=== PATIENT | female | born 1945 | race Hispanic/Latino ===

== ENCOUNTER → 2018-06-07 | Day surgery (SDC) | payer MEDICARE ==
[2018-06-05 12:10] LABS: BASOPHILS # (AUTO) 0.1 (0.0-0.1); BASOPHILS % 1.1 % (0.0-1.0); EOSINOPHILS # (AUTO) 0.2 (0.0-0.4); HEMATOCRIT 38.9 % (34.2-44.1); HEMOGLOBIN 12.3 g/dL (12.0-16.0); LYMPHOCYTES # (AUTO) 2.5 (1.0-3.2); LYMPHOCYTES % 33.8 % (18.0-39.1); MEAN CORPUSCULAR HEMOGLOBIN 26.5 pg (28-32); MEAN CORPUSCULAR HGB CONC 31.6 g/dL (31-35); MEAN CORPUSCULAR VOLUME 83.7 fL (81-99); MONOCYTES # (AUTO) 0.6 (0.2-0.8); NEUTROPHILS % 53.8 % (38.7-80.0); PLATELET COUNT 318 x10e3/uL (140-360); RED BLOOD COUNT 4.65 x10e6/uL (3.6-5.1); RED CELL DISTRIBUTION WIDTH 15.8 % (11.7-14.4)
[~2018-06-07] MED LIST: BENICAR HCT 201 EACH PO; DEXILANT60 MG PO; ELIQUIS PO; GUAIFENESIN-CO118 ML PO; METHOCARBAMOL500 MG PO; METOPROLOL SUCC25 MG PO; METRONIDAZOLE250 MG PO; NAPROXEN500 MG PO; NIFEDIPINE ER30 M1 PO; PROPOFOL IV EMULSION 10 MG/ML 50 ML VIAL ONE
--- OUTSIDE RECORDS SUMMARY | 2018-06-07 07:15 | XMS REPORT | Clinical Summary ---
Author Author [facility] Organization [facility] Address Unknown Phone Unavailable Care Team Providers Care Collections Attorney Name Role Phone PCP Unavailable Allergies Not on File Medications Not on file Active Problems Not on file Social History Date Tobacco Use Types Packs/Day Years Used Never Assessed Sex Assigned at Date Recorded Not on file Industry Job Start Date Occupation Not on file Not on file Not on file Travel End Travel History Travel Start No recent travel history available. Last Filed Vital Signs Not on file Plan of Treatment Not on file Results Not on fileafter 06/06/2017 Insurance Payer Benefit Subscriber ID Type Phone Address Plan / Group MEDICARE MEDICARE A xxxxxxxxxx Medicare B (Home) [place] [address]
--- OUTSIDE RECORDS SUMMARY | 2018-06-07 07:15 | XMS REPORT | Clinical Summary ---
Author Author [facility] Address Unknown Phone Unavailable Care Team Providers [facility] Re[employer] Manager Name Role Phone Malcolm Sevilla MD PCP Allergies Comments Active Allergy Reactions Severity Noted Date Metoclopramide Rash Low 01/08/2017 Penicillins 01/08/2017 Medications End Date Status Medication Sig Dispensed Refills Start Date Active dexlansoprazole Take 60 mg by 0 (DEXILANT) 60 mg capsule mouth daily. Active apixaban (ELIQUIS) 5 mg Take 5 mg by 0 tablet mouth 2 (two) times a day. Active aspirin 81 mg chewable Chew 81 mg 0 tablet daily. Active metoprolol succinate XL Take 50 mg by 0 (TOPROL-XL) 50 mg 24 hr mouth daily. tablet Active olmesartan-hydrochlorothi Take 1 tablet 0 azide (BENICAR HCT) by mouth 20-12.5 mg per tablet daily. Active hydrALAZINE (APRESOLINE) Take 50 mg by 0 50 MG tablet mouth 2 (two) times a day. 06/18/2017 Discontinued metoclopramide (REGLAN) 5 Take 1 tablet 2 MG tablet by mouth 2 7 (two) times a day. 06/18/2017 Discontinued metoprolol succinate XL Take 1 tablet 0 (TOPROL-XL) 50 mg 24 hr by mouth 7 tablet daily. 06/25/2017 Discontinued apixaban (ELIQUIS) 5 mg Take Apixaban 120 tablet 0 tablet 10mg PO BID 7 x7 days, then Take Apixaban 5mg PO BID 06/20/2017 Discontinued hydrALAZINE (APRESOLINE) Take 50 mg by 0 50 MG tablet mouth daily. 06/25/2017 Discontinued clonIDINE (CATAPRES) 0.1 Take 0.1 mg 0 MG tablet by mouth every 4 (four) hours as needed for high blood pressure. 06/25/2017 Discontinued metoprolol succinate XL Take 1 tablet 30 tablet 0 (TOPROL-XL) 50 mg 24 hr (50 mg total) 8 tablet by mouth daily for 30 days. 06/25/2017 Discontinued aspirin 81 mg chewable Chew 1 tablet 30 tablet 0 tablet (81 mg total) 8 daily for 30 days. 06/25/2017 Discontinued ciprofloxacin (CIPRO) 500 Take 1 tablet 10 tablet 0 MG tablet (500 mg 8 total) by mouth 2 (two) times a day for 5 days. 06/25/2017 Discontinued codeine-guaifenesin Take 5 mL by 118 mL 0 (GUAIFENESIN AC) 10-100 mouth 3 8 mg/5 mL liquid (three) times a day as needed for cough for up to 5 days. 07/16/2017 meclizine (ANTIVERT) 12.5 Take 1 tablet 25 tablet 0 mg tabletIndications: (12.5 mg 8 Vertigo total) by mouth 2 (two) times a day as needed for dizziness or nausea for up to 20 days. Status Hospital, Clinic, or Ordered Dose Route Frequency Start End Date Other Facility Date Administered Medication Ended ondansetron ODT 4 mg oral every 8 hours PRN 06/26/19 (ZOFRAN-ODT) 18 8 disintegrating tablet 4 mgIndications: Vertigo, Nausea and vomiting, intractability of vomiting not specified, unspecified vomiting type Active Problems Problem Noted Date Vertigo 06/25/2017 Acute angina 06/17/2017 Hypertension 03/20/2017 Bilateral pulmonary embolism 02/01/2017 Encounters Care Team Description Date Type Specialty Cait Lee RN 06/30/2017 Telephone Tracer Clerk Cait Lee RN 06/27/2017 Telephone Tracer Clerk Amos Schmid MD Cheung, Min-Yuen Cynthia, MD Vertigo (Primary Dx); Intractable vomiting with nausea, unspecified vomiting type; Unable to ambulate; Other chronic pulmonary embolism without acute cor pulmonale; Gastroesophageal reflux disease, esophagitis presence not specified; Acute angina; Hypertension, unspecified type; Nausea and vomiting, intractability of vomiting not specified, unspecified vomiting type; Bilateral pulmonary embolism 06/25/2017 Emergency General Internal Medicine - 06/26/2017 Carlos Asencio 06/19/2017 Orders Only Procedural Cardiology Kelby Madsen DO Cherian, Cecil, MD Acute angina (Primary Dx); SOB (shortness of breath); Weakness generalized; Bilateral pulmonary embolism 06/17/2017 Emergency General Internal Medicine - 06/20/2017 after 06/06/2017 Immunizations Name Dates Previously Given Next Due FLUCELVAX QUAD PF (0.5mL 02/02/2017 syringe) Social History Date Tobacco Use Types Packs/Day Years Used Never Smoker Smokeless Tobacco: Never Used Alcohol Use Drinks/Week oz/Week Comments No Sex Assigned at Date Recorded Not on file Industry Job Start Date Occupation Not on file Not on file Not on file Travel End Travel History Travel Start No recent travel history available. Last Filed Vital Signs Time Taken Vital Sign Reading 06/26/2017 12:16 PM IT BUSINESS PROCESS ARCHITECT Blood Pressure 120/60 06/26/2017 12:16 PM IT BUSINESS PROCESS ARCHITECT Pulse 68 06/26/2017 12:16 PM IT BUSINESS PROCESS ARCHITECT Temperature 36.7 C (98 F) 06/26/2017 12:16 PM IT BUSINESS PROCESS ARCHITECT Respiratory Rate 18 06/26/2017 12:16 PM IT BUSINESS PROCESS ARCHITECT Oxygen Saturation 96% - Inhaled Oxygen - Concentration 06/25/2017 7:26 PM IT BUSINESS PROCESS ARCHITECT Weight 58.7 kg (129 lb 4.8 oz) 06/25/2017 7:26 PM IT BUSINESS PROCESS ARCHITECT Height 165.1 cm (5' 5") 06/25/2017 7:26 PM IT BUSINESS PROCESS ARCHITECT Body Mass Index 21.52 Plan of Treatment Health Maintenance Due Date Last Done Comments BREAST CANCER SCREENING 1994 COLON CANCER SCREENING 1994 SHINGLES VACCINES ( of 1994 2) PNEUMOCOCCAL 2009 POLYSACCHARIDE VACCINE AGE 65 AND OVER PNEUMOCOCCAL-13 2009 INFLUENZA VACCINE 11/29/2017 02/02/2017 Procedures Comments Procedure Name Priority Date/Time Associated Diagnosis ZZESTIMATED GFR Routine 06/26/2017 5:23 AM IT BUSINESS PROCESS ARCHITECT BASIC METABOLIC PANEL Routine 06/26/2017 5:23 AM IT BUSINESS PROCESS ARCHITECT HC COMPLETE BLD COUNT Routine 06/26/2017 W/AUTO DIFF 5:23 AM IT [employer] PROC[employer]CH[employer]ECT CT ANGIOGRAM NECK W WO STAT 06/25/2017 CONTRAST 6:05 PM IT BUSINESS PROCESS ARCHITECT URINALYSIS SCREEN AND STAT 06/25/2017 MICROSCOPY, WITH REFLEX 2:37 PM IT BUSINESS PROCESS ARCHITECT TO CULTURE URINE CULTURE STAT 06/25/2017 2:34 PM IT [employer] PROCESS ARCHITECT CT HEAD WO CONTRAST STAT 06/25/2017 1:34 PM IT BUSINESS PROCESS ARCHITECT POC GLUCOSE Routine 06/25/2017 12:30 PM IT BUSINESS PROCESS ARCHITECT ZZESTIMATED GFR STAT 06/25/2017 12:20 PM IT BUSINESS PROCESS ARCHITECT TROPONIN STAT 06/25/2017 12:20 PM IT BUSINESS PROCESS ARCHITECT PROTHROMBIN TIME WITH INR STAT 06/25/2017 12:20 PM IT BUSINESS PROCESS ARCHITECT PARTIAL THROMBOPLASTIN STAT 06/25/2017 TIME (PTT) 12:20 PM IT BUSINESS PROCESS ARCHITECT CREATINE KINASE, TOTAL STAT 06/25/2017 (CPK) 12:20 PM IT BUSINESS PROCESS ARCHITECT COMPREHENSIVE METABOLIC STAT 06/25/2017 PANEL 12:20 PM IT BUSINESS PROCESS ARCHITECT CK-MB STAT 06/25/2017 12:20 PM IT BUSINESS PROCESS ARCHITECT HC COMPLETE BLD COUNT STAT 06/25/2017 W/AUTO DIFF 12:20 PM IT BUSINESS PROCESS ARCHITECT ECG 12-LEAD Routine 06/25/2017 12:08 PM IT BUSINESS PROCESS ARCHITECT ZZESTIMATED GFR Routine 06/20/2017 4:32 AM IT BUSINESS PROCESS ARCHITECT COMPREHENSIVE METABOLIC Routine 06/20/2017 PANEL 4:32 AM IT BUSINESS PROCESS ARCHITECT HC COMPLETE BLD COUNT Routine 06/20/2017 W/AUTO DIFF 4:32 AM IT BUSINESS PROCESS ARCHITECT CTA CORONARY ARTERIES W Routine 06/19/2017 CONTRAST 2:09 PM IT BUSINESS PROCESS ARCHITECT ECHOCARDIOGRAM 2D Routine 06/19/2017 COMPLETE W MMODE SPECTRAL 8:49 AM IT BUSINESS PROCESS ARCHITECT COLOR DOPPLER (85901) HC COMPLETE BLD COUNT Routine 06/19/2017 W/AUTO DIFF 6:15 AM IT BUSINESS PROCESS ARCHITECT ZZESTIMATED GFR Routine 06/19/2017 4:00 AM IT BUSINESS PROCESS ARCHITECT COMPREHENSIVE METABOLIC Routine 06/19/2017 PANEL 4:00 AM IT BUSINESS PROCESS ARCHITECT NM LUNG VENTILATION Routine 06/18/2017 PERFUSION 8:30 PM IT BUSINESS PROCESS ARCHITECT TROPONIN Timed 06/18/2017 1:59 AM IT BUSINESS PROCESS ARCHITECT CT ANGIOGRAM PE CHEST STAT 06/17/2017 10:20 PM IT BUSINESS PROCESS ARCHITECT ECG ED PRELIMINARY Routine 06/17/2017 INTERPRETATION 9:04 PM IT BUSINESS PROCESS ARCHITECT URINALYSIS SCREEN AND Routine 06/17/2017 MICROSCOPY, WITH REFLEX 8:14 PM IT BUSINESS PROCESS ARCHITECT TO CULTURE BLOOD CULTURE, AEROBIC & Routine 06/17/2017 ANAEROBIC 8:14 PM IT BUSINESS PROCESS ARCHITECT BLOOD CULTURE, AEROBIC & Routine 06/17/2017 ANAEROBIC 8:14 PM IT BUSINESS PROCESS ARCHITECT URINE CULTURE Routine 06/17/2017 8:14 PM IT BUSINESS PROCESS ARCHITECT GRAM STAIN Routine 06/17/2017 8:14 PM IT BUSINESS PROCESS ARCHITECT ZZESTIMATED GFR STAT 06/17/2017 7:47 PM IT BUSINESS PROCESS ARCHITECT CREATINE KINASE, TOTAL STAT 06/17/2017 (CPK) 7:47 PM IT BUSINESS PROCESS ARCHITECT PARTIAL THROMBOPLASTIN STAT 06/17/2017 TIME (PTT) 7:47 PM IT BUSINESS PROCESS ARCHITECT PROTHROMBIN TIME WITH INR STAT 06/17/2017 7:47 PM IT BUSINESS PROCESS ARCHITECT B NATRIURETIC PEPTIDE STAT 06/17/2017 7:47 PM IT BUSINESS PROCESS ARCHITECT TROPONIN STAT 06/17/2017 7:47 PM IT BUSINESS PROCESS ARCHITECT COMPREHENSIVE METABOLIC STAT 06/17/2017 PANEL 7:47 PM IT BUSINESS PROCESS ARCHITECT HC COMPLETE BLD COUNT STAT 06/17/2017 W/AUTO DIFF 7:47 PM IT BUSINESS PROCESS ARCHITECT RESPIRATORY PATHOGEN Routine 06/17/2017 PANEL 7:47 PM IT BUSINESS PROCESS ARCHITECT INFLUENZA ANTIGEN Routine 06/17/2017 7:47 PM IT BUSINESS PROCESS ARCHITECT XR CHEST 1 VW PORTABLE STAT 06/17/2017 7:32 PM IT BUSINESS PROCESS ARCHITECT ECG 12-LEAD STAT 06/17/2017 7:17 PM IT BUSINESS PROCESS ARCHITECT after 06/06/2017 Results * Estimated GFR (06/26/2017 5:23 AM IT BUSINESS PROCESS ARCHITECT) Only the most recent of 5 results within the time period is included. GFR Non Af Amer 49 (A) mL/min/1.73 m2 [facility] DEPARTMENT OF PATHOLOGY AND GENOMIC MEDICINE GFR Af Amer 59 (A) mL/min/1.73 m2 [facility] DEPARTMENT OF Comment: PATHOLOGY AND Chronic kidney disease: <60 GENOMIC MEDICINE mL/min/1.73m2 Kidney failure: <15 mL/min/1.73m2 The estimated GFR is calculated from the IDMS-traceable Modification of Diet in Renal Disease Equation. The accuracy of the calculation is poor when the creatinine is normal. Calculated values >90 mL/min/1.73m2 are not reported. This equation has not been validated in children (<18 years), women, the elderly (>70 years), or ethnic groups other than Caucasians and Americans. Specimen Plasma specimen Performing Organization Address City/State/Zipcode Phone Number [facility] DEPARTMENT OF [address] [place] [address] PATHOLOGY AND GENOMIC MEDICINE * CBC with platelet and differential (06/26/2017 5:23 AM IT BUSINESS PROCESS ARCHITECT) Only the most recent of 5 results within the time period is included. WBC 6.60 4.50 - 11.00 k/uL [facility] DEPARTMENT OF PATHOLOGY AND GENOMIC MEDICINE RBC 3.98 (L) 4.20 - 5.50 m/uL [facility] DEPARTMENT OF PATHOLOGY AND GENOMIC MEDICINE HGB 10.7 (L) 12.0 - 16.0 g/dL [facility] DEPARTMENT OF PATHOLOGY AND GENOMIC MEDICINE HCT 33.4 (L) 37.0 - 47.0 % [facility] DEPARTMENT OF PATHOLOGY AND GENOMIC MEDICINE MCV 83.9 82.0 - 100.0 fL [facility] DEPARTMENT OF PATHOLOGY AND GENOMIC MEDICINE MCH 26.9 (L) 27.0 - 34.0 pg [facility] DEPARTMENT OF PATHOLOGY AND GENOMIC MEDICINE MCHC 32.0 31.0 - 37.0 g/dL [facility] DEPARTMENT OF PATHOLOGY AND GENOMIC MEDICINE RDW - SD 44.7 37.0 - 55.0 fL [facility] DEPARTMENT OF PATHOLOGY AND GENOMIC MEDICINE MPV 10.2 8.8 - 13.2 fL [facility] DEPARTMENT OF PATHOLOGY AND GENOMIC MEDICINE Platelet count 261 150 - 400 k/uL [facility] DEPARTMENT OF PATHOLOGY AND GENOMIC MEDICINE Nucleated RBC 0.00 /100 WBC [facility] DEPARTMENT OF PATHOLOGY AND GENOMIC MEDICINE Neutrophils 56.4 39.0 - 69.0 % [facility] DEPARTMENT OF PATHOLOGY AND GENOMIC MEDICINE Lymphocytes 29.7 25.0 - 45.0 % [facility] DEPARTMENT OF PATHOLOGY AND GENOMIC MEDICINE Monocytes 8.6 0.0 - 10.0 % [facility] DEPARTMENT OF PATHOLOGY AND GENOMIC MEDICINE Eosinophils 3.6 0.0 - 5.0 % [facility] DEPARTMENT OF PATHOLOGY AND GENOMIC MEDICINE Basophils 1.2 (H) 0.0 - 1.0 % [facility] DEPARTMENT OF PATHOLOGY AND GENOMIC MEDICINE Immature granulocytes 0.5Comment: "Immature 0.0 - 1.0 % [facility] DEPARTMENT OF granulocytes" (promyelocytes, PATHOLOGY AND myelocytes, metamyelocytes) [facility] Specimen Blood Performing Organization Address City/State/Zipcode Phone Number [facility] DEPARTMENT OF [address] [place] [address] PATHOLOGY AND GENOMIC MEDICINE * Basic metabolic panel (06/26/2017 5:23 AM IT BUSINESS PROCESS ARCHITECT) Sodium 137 135 - 148 mEq/L [facility] DEPARTMENT OF PATHOLOGY AND GENOMIC MEDICINE Potassium 3.7 3.5 - 5.0 mEq/L [facility] DEPARTMENT OF PATHOLOGY AND GENOMIC MEDICINE Chloride 102 98 - 112 mEq/L [facility] DEPARTMENT OF PATHOLOGY AND GENOMIC MEDICINE CO2 24 24 - 31 mEq/L [facility] DEPARTMENT OF PATHOLOGY AND GENOMIC MEDICINE Anion gap 11 7 - 15 mEq/L [facility] DEPARTMENT OF Comment: PATHOLOGY AND Starting from July GENOMIC MEDICINE , anion gap calculation no longer incorporates potassium. Please note the change. BUN 17 8 - 23 mg/dL [facility] DEPARTMENT OF PATHOLOGY AND GENOMIC MEDICINE Creatinine 1.1 (H) 0.5 - 0.9 mg/dL [facility] DEPARTMENT OF PATHOLOGY AND GENOMIC MEDICINE Glucose 108 (H) 65 - 99 mg/dL [facility] DEPARTMENT OF PATHOLOGY AND GENOMIC MEDICINE Calcium 8.8 8.8 - 10.2 mg/dL [facility] DEPARTMENT OF PATHOLOGY AND GENOMIC MEDICINE Specimen Plasma specimen Performing Organization Address City/State/Zipcode Phone Number [facility] DEPARTMENT OF [address] [place] [address] PATHOLOGY AND GENOMIC MEDICINE * CTA Neck W Wo Contrast (06/25/2017 6:05 PM IT BUSINESS PROCESS ARCHITECT) Narrative Performed At EXAMINATION: CT ANGIOGRAM NECK W WO CONTRAST RADIANT CLINICAL HISTORY: neck pain and new onset vertigo COMPARISON:None TECHNIQUE: Imaging of the cervical circulation was obtained from the upper thorax to the skull base during the arterial phase of enhancement. Postprocessing was performed with MIP multiplanar and 3D reconstructed images. CT scans are performed using radiation dose reduction techniques. Technical factors are evaluated and adjusted to ensure appropriate moderation of exposure. Automated dose management technology is applied to adjust radiation exposure while achieving a diagnostic quality image. FINDINGS: The common carotid arteries, carotid bulbs, internal carotid arteries and external carotid arteries are opacified with 0% stenosis by NASCET criteria. The vertebral arteries are patent throughout the visualized cervical segments without significant stenosis. The vertebral arteries are roughly codominant. Visualized upper mediastinum shows no mass lesion. Lung apices are clear. Visualized soft tissues shows no mass, adenopathy or fluid collection. Visualized osseous structures shows no acute fracture or dislocation. No incidental thyroid nodules are noted. IMPRESSION: No hemodynamically significant narrowing of the cervical vessels by NASCET criteria. [facility]-[id number] Procedure Note Interface, Radiology Results Incoming - 06/25/2017 6:15 PM IT BUSINESS PROCESS ARCHITECT EXAMINATION: CT ANGIOGRAM NECK W WO CONTRAST CLINICAL HISTORY: neck pain and new onset vertigo COMPARISON: None TECHNIQUE: Imaging of the cervical circulation was obtained from the upper thorax to the skull base during the arterial phase of enhancement. Postprocessing was performed with MIP multiplanar and 3D reconstructed images. CT scans are performed using radiation dose reduction techniques. Technical factors are evaluated and adjusted to ensure appropriate moderation of exposure. Automated dose management technology is applied to adjust radiation exposure while achieving a diagnostic quality image. FINDINGS: The common carotid arteries, carotid bulbs, internal carotid arteries and external carotid arteries are opacified with 0% stenosis by NASCET criteria. The vertebral arteries are patent throughout the visualized cervical segments without significant stenosis. The vertebral arteries are roughly codominant. Visualized upper mediastinum shows no mass lesion. Lung apices are clear. Visualized soft tissues shows no mass, adenopathy or fluid collection. Visualized osseous structures shows no acute fracture or dislocation. No incidental thyroid nodules are noted. IMPRESSION: No hemodynamically significant narrowing of the cervical vessels by NASCET criteria. [facility]-[id number] Performing Organization Address [facility]/Zipcode Phone Number [facility] [address] [place] [address] * Urinalysis screen and microscopy, with reflex to culture (06/25/2017 2:37 PM IT BUSINESS PROCESS ARCHITECT) Only the most recent of 2 results within the time period is included. Specimen site Clean catch [facility] DEPARTMENT OF PATHOLOGY AND GENOMIC MEDICINE Color, UA Yellow [facility] DEPARTMENT OF PATHOLOGY AND GENOMIC MEDICINE Appearance, UA Clear [facility] DEPARTMENT OF PATHOLOGY AND GENOMIC MEDICINE Specific gravity, UA 1.019 1.001 - 1.035 [facility] DEPARTMENT OF PATHOLOGY AND GENOMIC MEDICINE pH, UA 5.0 5.0 - 8.5 [facility] DEPARTMENT OF PATHOLOGY AND GENOMIC MEDICINE Protein, UA 1+ (A) Negative [facility] DEPARTMENT OF PATHOLOGY AND GENOMIC MEDICINE Glucose, UA Negative Negative [facility] DEPARTMENT OF PATHOLOGY AND GENOMIC MEDICINE Ketones, UA Negative Negative [facility] DEPARTMENT OF PATHOLOGY AND GENOMIC MEDICINE Bilirubin, UA Negative Negative [facility] DEPARTMENT OF PATHOLOGY AND GENOMIC MEDICINE Blood, UA Small (A) Negative [facility] DEPARTMENT OF PATHOLOGY AND GENOMIC MEDICINE Nitrite, UA Negative Negative [facility] DEPARTMENT OF PATHOLOGY AND GENOMIC MEDICINE Urobilinogen, UA <2.0 <2.0 [facility] DEPARTMENT OF PATHOLOGY AND GENOMIC MEDICINE Leukocyte esterase, UA Negative Negative [facility] DEPARTMENT OF PATHOLOGY AND GENOMIC MEDICINE Epithelial cells, UA 1 /HPF [facility] DEPARTMENT OF PATHOLOGY AND GENOMIC MEDICINE WBC, UA 2 0 - 4 /HPF [facility] DEPARTMENT OF PATHOLOGY AND GENOMIC MEDICINE RBC, UA 2 0 - 2 /HPF [facility] DEPARTMENT OF PATHOLOGY AND GENOMIC MEDICINE Bacteria, UA None seen None seen [facility] DEPARTMENT OF PATHOLOGY AND GENOMIC MEDICINE Yeast, UA None seen [facility] DEPARTMENT OF PATHOLOGY AND GENOMIC MEDICINE Yeast with pseudohyphae, None seen [facility] DEPARTMENT OF UA PATHOLOGY AND GENOMIC MEDICINE Hyaline casts, UA 10 /LPF [facility] DEPARTMENT OF PATHOLOGY AND GENOMIC MEDICINE Specimen Urine Performing Organization Address City/[facility] Centercode Phone Number [address] [address] PATHOLOGY AND GENOMIC MEDICINE * Urine culture (06/25/2017 2:34 PM IT BUSINESS PROCESS ARCHITECT) Only the most recent of 2 results within the time period is included. Urine culture SEE COMMENTComment: [facility] DEPARTMENT OF Bacteriuria screen negative. PATHOLOGY AND GENOMIC MEDICINE Performing Organization Address [facility] Centercode Phone Number [address] [address] PATHOLOGY AND GENOMIC MEDICINE * CT Head Wo Contrast (06/25/2017 1:34 PM IT BUSINESS PROCESS ARCHITECT) Narrative Performed At EXAMINATION:CT HEAD WO CONTRAST HM RADIANT CLINICAL HISTORY:new onset sudden dizziness COMPARISON:March 20, 2017 TECHNIQUE: CT imaging was performed with iterative reconstruction technique and/or automated exposure control to reduce radiation dose. Findings: No intracranial hemorrhage, acute transcortical ischemia, extra-axial fluid collections or parenchymal mass lesions. No skull fractures or aggressive bony lesions. Bilateral lens surgery. Visualized paranasal sinuses show minimal thickening. Mastoid air cells are clear. IMPRESSION: No acute intracranial abnormalities. [facility]-[id number] Procedure Note Hm Interface, Radiology Results Incoming - 06/25/2017 1:40 PM IT BUSINESS PROCESS ARCHITECT EXAMINATION: CT HEAD WO CONTRAST CLINICAL HISTORY: new onset sudden dizziness COMPARISON: March 20, 2017 TECHNIQUE: CT imaging was performed with iterative reconstruction technique and/or automated exposure control to reduce radiation dose. Findings: No intracranial hemorrhage, acute transcortical ischemia, extra-axial fluid collections or parenchymal mass lesions. No skull fractures or aggressive bony lesions. Bilateral lens surgery. Visualized paranasal sinuses show minimal thickening. Mastoid air cells are clear. IMPRESSION: No acute intracranial abnormalities. [facility]-[id number] Performing Organization Address [facility] Phone Number [facility] [address] [place] [id number] * POC glucose (06/25/2017 12:30 PM IT BUSINESS PROCESS ARCHITECT) POC glucose 136 (H) 65 - 99 mg/dL [facility] DEPARTMENT OF Comment: PATHOLOGY AND [facility] Notified RN GENOMIC MEDICINE Meter ID: [id number] Dba: Margarito Garcia Performing Organization Address [facility] Centercode Phone Number [facility] DEPARTMENT [address] [address] PATHOLOGY AND GENOMIC MEDICINE * CK-MB (06/25/2017 12:20 PM IT BUSINESS PROCESS ARCHITECT) CK-MB 2.6 1.0 - 5.3 ng/mL [facility] DEPARTMENT OF PATHOLOGY AND GENOMIC MEDICINE Specimen Plasma specimen Performing Organization Address [facility] [place] [address] PATHOLOGY AND [facility] MEDICINE * Troponin (06/25/2017 12:20 PM IT BUSINESS PROCESS ARCHITECT) Only the most recent of 3 results within the time period is included. Troponin <0.30 0.00 - 0.30 ng/mL [facility] DEPARTMENT OF Comment: PATHOLOGY AND 0.30 - 1.49 GENOMIC MEDICINE ng/mlMay indicate increased risk of acute coronary syndrome. >=1.5 ng/ml Consistent with acute myocardial infarction. The diagnostic value of a single normal or non-diagnostic result is questionable.Serial samples at 2-6 hour intervals are required to rule out acute myocardial injury. Specimen Plasma specimen Performing Organization Address [facility] [place] [address] [facility] * Partial thromboplastin time, activated (06/25/2017 12:20 PM IT BUSINESS PROCESS ARCHITECT) Only the most recent of 2 results within the time period is included. PTT 33.6 23.0 - 36.0 sec [facility] DEPARTMENT OF Comment: PATHOLOGY AND PTT therapeutic range for [facility] MEDICINE unfractionated heparin is 61.0-112.0 seconds which corresponds to Anti-Xa 0.3-0.7 U/ml. Specimen Blood Performing Organization Address [facility] [place] [address] PATHOLOGY AND [facility] MEDICINE * Prothrombin time with INR (06/25/2017 12:20 PM IT BUSINESS PROCESS ARCHITECT) Only the most recent of 2 results within the time period is included. Prothrombin time 16.1 (H) 12.0 - 15.0 sec [facility] DEPARTMENT OF PATHOLOGY AND [facility] INR 1.3 [facility] DEPARTMENT OF Comment: PATHOLOGY AND The International Normalized GENOMIC MEDICINE Ratio (INR) is a therapeutic monitoring tool for patients who are stable on oral anticoagulant therapy. An INR of 2.0-3.0 is suggested for deep vein thrombosis/pulmonary embolism. Specimen Blood Performing Organization Address [facility]/[place] [address] PATHOLOGY AND [facility] MEDICINE * Creatine kinase, total (CPK) (06/25/2017 12:20 PM IT BUSINESS PROCESS ARCHITECT) Only the most recent of 2 results within the time period is included. Creatine kinase 71 26 - 192 U/L [facility] DEPARTMENT OF PATHOLOGY AND GENOMIC MEDICINE Specimen Plasma specimen Performing Organization Address City/State/Zipcode Phone Number [facility] DEPARTMENT OF [address] [place] [address] PATHOLOGY AND GENOMIC MEDICINE * Comprehensive metabolic panel (06/25/2017 12:20 PM IT BUSINESS PROCESS ARCHITECT) Only the most recent of 4 results within the time period is included. Sodium 137 135 - 148 mEq/L [facility] DEPARTMENT OF PATHOLOGY AND GENOMIC MEDICINE Potassium 4.0 3.5 - 5.0 mEq/L [facility] DEPARTMENT OF PATHOLOGY AND GENOMIC MEDICINE Chloride 101 98 - 112 mEq/L [facility] DEPARTMENT OF PATHOLOGY AND GENOMIC MEDICINE CO2 23 (L) 24 - 31 mEq/L [facility] DEPARTMENT OF PATHOLOGY AND GENOMIC MEDICINE Anion gap 13 7 - 15 mEq/L [facility] DEPARTMENT OF Comment: PATHOLOGY AND Starting from July GENOMIC MEDICINE , anion gap calculation no longer incorporates potassium. Please note the change. BUN 18 8 - 23 mg/dL [facility] DEPARTMENT OF PATHOLOGY AND GENOMIC MEDICINE Creatinine 1.0 (H) 0.5 - 0.9 mg/dL [facility] DEPARTMENT OF PATHOLOGY AND GENOMIC MEDICINE Glucose 138 (H) 65 - 99 mg/dL [facility] DEPARTMENT OF PATHOLOGY AND GENOMIC MEDICINE Calcium 9.3 8.8 - 10.2 mg/dL [facility] DEPARTMENT OF PATHOLOGY AND GENOMIC MEDICINE Protein 7.3 6.3 - 8.3 g/dL [facility] DEPARTMENT OF Comment: PATHOLOGY AND [place] GENOMIC MEDICINE 4.6-7.0 g/dL 1 week 4.4-7.6 g/dL 7 months-1year 5.1-7.3 g/dL 1-2 years5.6-7 .5 g/dL >3 years6.0-8 .0 g/dL 18-150 6.3-8.3 g/dL Albumin 3.6 3.5 - 5.0 g/dL [facility] DEPARTMENT OF PATHOLOGY AND GENOMIC MEDICINE A/G ratio 1.0 0.7 - 3.8 [facility] DEPARTMENT OF PATHOLOGY AND GENOMIC MEDICINE Alkaline phosphatase 111 (H) 35 - 104 U/L [facility] DEPARTMENT OF PATHOLOGY AND GENOMIC MEDICINE AST 23 10 - 35 U/L [facility] DEPARTMENT OF PATHOLOGY AND GENOMIC MEDICINE ALT 15 5 - 50 U/L [facility] DEPARTMENT OF PATHOLOGY AND GENOMIC MEDICINE Total bilirubin 0.3 0.0 - 1.2 mg/dL [facility] DEPARTMENT OF PATHOLOGY AND GENOMIC MEDICINE Specimen Plasma specimen Performing Organization Address [facility] Phone Number [facility] DEPARTMENT OF [address] [place] [address] PATHOLOGY AND GENOMIC MEDICINE * ECG 12 lead (06/25/2017 12:08 PM IT BUSINESS PROCESS ARCHITECT) Only the most recent of 2 results within the time period is included. Ventricular rate 89 H MUSE Atrial rate 89 [facility] MUSE IL interval 222 [facility] MUSE QRSD interval 110 [facility] MUSE QT interval 374 [facility] MUSE QTC interval 455 [facility] MUSE P axis 1 64 HM MUSE QRS axis 1 47 [facility] MUSE T wave axis 35 [facility] MUSE EKG impression Sinus rhythm with 1st degree [facility] MUSE AV block-Low voltage QRS-Incomplete left bundle branch block-Borderline ECG-In automated comparison with ECG of -JUN-2017 19:17,-Incomplete left bundle branch block is now present- Performing Organization Address [facility] Phone Number [facility] [address] [place] [address] * Cv cta coronary arteries bypass w contrast (06/19/2017 2:09 PM IT BUSINESS PROCESS ARCHITECT) Narrative Performed At [facility] Nuclear Cardiology and Cardiac CT [address] [place] [address] CTA Coronary Arteries Report Pat.Name:EDILBERTO PA Pat.ID:[id number] .Date: 06/19/2017 Refer.MD:GHANSHYAM HILL MD Exam Time: 1:55:00 PMStudy Type:CTA Coronary Arteries Height:62inWeight:135lb BSA: 1.62 m2 DOBAge:1945,71Y Sex: FEMALEBP:144/69 HR:73 bpm Nuclear Tech:Migdalia Tejeda, RT(R)(CT) CPT - 4: CCTA w Thoracic Aorta (NonCongenital) [id number] Nuclear Event ID:[id number] Order ID:[id number] Reason for Study:Chest Pain Procedures:CT Prospective (intervals) Race:C SUMMARY: Technique: IV contrast was administered and sequential 0.[address] cuts were obtained through the chest using the Siemens Somatom Force CT scanner. Post-processing and 3D reconstruction were done using the Intersect ENT workstation. Interactive image viewing and volumetric display and analysis were also performed. CTA RESULTS Left Main: A normal sized 4.4 artery which arises normally from the left sinus of Valsalva and divides into the left anterior descending and circumflex coronary arteries. No significant atherosclerotic plaque is present. Left anterior descending (LAD): A normal sized 3.4mm artery which wraps around the apex and gives off two diagonal branches. Mild non-calcified atherosclerotic plaque is present in the proximal segment but without significant stenosis. The first diagonal is a 1.0 mm bifurcating artery which has no significant atherosclerotic plaque present. The second diagonal is a 2.2 mm bifurcating artery which has no significant atherosclerotic plaque present. Left circumflex: A normal sized 2.9 mm non-dominant artery which arises normally from the left main and gives off three major obtuse marginal arteries before terminating in the AV groove. No significant atherosclerotic plaqueis present. The first obtuse marginal is a 1.1 mm artery which has no significant atherosclerotic plaque present. The second obtuse marginal is a 1.8 mm artery which has no significant atherosclerotic plaque present. The third obtuse marginal is a 2.2 mm artery which has no significant atherosclerotic plaque present. Right coronary artery: A normal sized 3.5 mm dominant artery which arises normally from the right sinus of Valsalva and gives off several right ventricular branches, the posterior descending artery and the posterolateral artery. No significant atherosclerotic plaqueis present. The posterior descending is a 2.3 mm artery which has no significant atherosclerotic plaque present The posterolateral is a 2.4 mm trifurcating artery which has mild predominantly calcified atherosclerotic plaque present but no significant stenosis. Ramus: None Stents: None. Bypass Grafts: None. Pulmonary Arteries: Normal pulmonary artery sizes with no proximal thrombus identified. Left Atrial and Pulmonary Vein Dimensions: Left atrial size (A-P diameter) 2.9 cm. Left atrial volume 69 ml. Normal PV anatomy Left superior PV12 mm. Left inferior PV13 mm. Right superior PV16 mm. Right inferior PV 15 mm. There is no evidence of the left atrial appendage clot., There is a patent foramen ovale. Left Ventricular Valve Morphology/Function: Aortic valve is tri-leaflet and there is no evidence of stenosis or regurgitation. Mitral valve is normal without evidence of regurgitation. Thoracic Aortic Dimensions: No aortic aneurysm or dissection is seen. Aortic root2.8 cm. Sinotubular junction 2.0 cm. Mid ascending aorta 2.5 cm. Descending thoracic aorta 2.1 cm. Pericardium: No pericardial effusion or pericardial thickening. Non-Cardiac Findings: Bibasilar atelectasis. Small (10 mm diameter) left basal pleural based fatty nodule. CONCLUSION CT coronary angiography shows atherosclerotic plaque but no significant coronary artery stenosis Normal PV anatomy. There is no evidence of the left atrial appendage clot. Normal pulmonary artery sizes with no proximal thrombus identified. STUDY QUALITY The study quality is good. COMMENTS None. The above report was based on a dedicated Cardiovascular CTA Protocol and interpreted by a Wood Treating Inspector.Should a more comprehensive assessment of non-cardiovascular findings be desired, please consult a radiologist.These images are available in the [facility] Minted PACS system. Signed 06/19/2017 07:42 PM Rickie Bell MD Procedure Note Interface, Radiology Results In - 06/19/2017 8:14 PM [facility] Nuclear Cardiology and Cardiac CT [address] [place] [address] CTA Coronary Arteries Report Pat.Name: EDILBERTO PA.ID: [id number] .Date: 06/19/2017 Refer.MD: GHANSHYAM HILL MD Exam Time: 1:55:00 PM Study Type:CTA Coronary Arteries Height: 62in Weight: 135lb BSA: 1.62 m2 Age: 8 1945,71Y Sex: FEMALE BP: 144/69 HR: 73 bpm Nuclear Tech:Migdalia Tejeda, RT(R)(CT) CPT - 4: CCTA w Thoracic Aorta (NonCongenital) [id number] Nuclear Event ID:[id number] Order ID: [id number] Reason for Study:Chest Pain Procedures:CT Prospective (intervals) Race: C SUMMARY: Technique: IV contrast was administered and sequential 0.[address] cuts were obtained through the chest using the Siemens Somatom Force CT scanner. Post-processing and 3D reconstruction were done using the Intersect ENT workstation. Interactive image viewing and volumetric display and analysis were also performed. CTA RESULTS Left Main: A normal sized 4.4 artery which arises normally from the left sinus of Valsalva and divides into the left anterior descending and circumflex coronary arteries. No significant atherosclerotic plaque is present. Left anterior descending (LAD): A normal sized 3.4mm artery which wraps around the apex and gives off two diagonal branches. Mild non-calcified atherosclerotic plaque is present in the proximal segment but without significant stenosis. The first diagonal is a 1.0 mm bifurcating artery which has no significant atherosclerotic plaque present. The second diagonal is a 2.2 mm bifurcating artery which has no significant atherosclerotic plaque present. Left circumflex: A normal sized 2.9 mm non-dominant artery which arises normally from the left main and gives off three major obtuse marginal arteries before terminating in the AV groove. No significant atherosclerotic plaque is present. The first obtuse marginal is a 1.1 mm artery which has no significant atherosclerotic plaque present. The second obtuse marginal is a 1.8 mm artery which has no significant atherosclerotic plaque present. The third obtuse marginal is a 2.2 mm artery which has no significant atherosclerotic plaque present. Right coronary artery: A normal sized 3.5 mm dominant artery which arises normally from the right sinus of Valsalva and gives off several right ventricular branches, the posterior descending artery and the posterolateral artery. No significant atherosclerotic plaque is present. The posterior descending is a 2.3 mm artery which has no significant atherosclerotic plaque present The posterolateral is a 2.4 mm trifurcating artery which has mild predominantly calcified atherosclerotic plaque present but no significant stenosis. Ramus: None Stents: None. Bypass Grafts: None. Pulmonary Arteries: Normal pulmonary artery sizes with no proximal thrombus identified. Left Atrial and Pulmonary Vein Dimensions: Left atrial size (A-P diameter) 2.9 cm. Left atrial volume 69 ml. Normal PV anatomy Left superior PV12 mm. Left inferior PV13 mm. Right superior PV16 mm. Right inferior PV 15 mm. There is no evidence of the left atrial appendage clot., There is a patent foramen ovale. Left Ventricular Valve Morphology/Function: Aortic valve is tri-leaflet and there is no evidence of stenosis or regurgitation. Mitral valve is normal without evidence of regurgitation. Thoracic Aortic Dimensions: No aortic aneurysm or dissection is seen. Aortic root 2.8 cm. Sinotubular junction 2.0 cm. Mid ascending aorta 2.5 cm. Descending thoracic aorta 2.1 cm. Pericardium: No pericardial effusion or pericardial thickening. Non-Cardiac Findings: Bibasilar atelectasis. Small (10 mm diameter) left basal pleural based fatty nodule. CONCLUSION CT coronary angiography shows atherosclerotic plaque but no significant coronary artery stenosis Normal PV anatomy. There is no evidence of the left atrial appendage clot. Normal pulmonary artery sizes with no proximal thrombus identified. STUDY QUALITY The study quality is good. COMMENTS None. The above report was based on a dedicated Cardiovascular CTA Protocol and interpreted by a Wood Treating Inspector. Should a more comprehensive assessment of non-cardiovascular findings be desired, please consult a radiologist. These images are available in the [facility] Minted PACS system. Signed 06/19/2017 07:42 PM Rickie Bell MD Performing Organization Address [facility]/State/Zipcode Phone Number [facility] [address] [place] [address] * Echocardiogram complete w contrast and 3D if needed (06/19/2017 8:49 AM IT BUSINESS PROCESS ARCHITECT) Narrative Performed At [facility] Echocardiography Report [address] [place] [address] Pat.Name:EDILBERTO PA [facility].ID:[id number] .Date: 06/19/2017 Refer.MD:GHANSHYAM HILL MD Exam Time: 8:03:00 AMStudy Type:Routine Echo Height:64inWeight:135lb BSA: 1.66 m2 DOBAge:1945,71Y Sex: FEMALEBP:132/60 HR:67 bpmSonogrphr: GARRY Reynoso Pat. Stat.:Inpatient Room:J808A Study Status:Final Echo Event ID:[id number] Order ID:[id number] Reason for Study:Eval. pulmonary HTN Procedures:2D Echo, Colorflow Doppler, Intravenous Definity Contrast Race:C SUMMARY: Normal 2D and Doppler examination. Insufficient TR jet to estimate PA systolic pressure. FINDINGS: LV: LV size is normal. LV EF is normal. Overall wall motion is normal.Estimated EF is 65-69% RV: RV size is normal. RV systolic function is normal. RV wall motionis normal. LA: LA size is normal. RA: RA size is normal. AO: Aortic root diameter is normal. JENIFFER: No pericardial effusion. AV: No structural AV abnormalities noted. MV: No structural MV abnormalities noted. A trace of mitral regurgitation. PV: No structural PV abnormalities noted. A trace of pulmonic regurgitation. TV: No structural TV abnormalities noted. A trace of tricuspid regurgitation Reynolds: LV relaxation is reduced, appropriate for age. LV filling pressureis normal. Other:Insufficient TR jet to estimate PA systolic pressure. MEASUREMENTS: 2D Parasternal [place] LVOT 1.6 cmLA Ds2.7 cm LVIDd4.3 cmIndex2.6 cm/m Ao Rtd 2.7 cm Index1.6 cm/m LVIDs2.1 cmLV Mass 92.9 g(87-129) LV%fs 52 % LVM Index 56 g/m2 IVSd 0.7 cmRWT0.3 LVPWd0.7 cm LA Sng Plane LA Area 14.6 cm2(8.8-23.4) LA Vol36.7 ml Index22.1 ml/m LA LngAx 4.8 cm RA Sng Plane RA Area 13.2 cm2(8.3-19.5) RA Vol29.8 ml Index18 ml/m RA LngAx 4.9 cm DOPPLER LVOT Stroke Vol LVOT 1.6 cmLVOT CO3.1 l/min LVOT TVI23 cmLVOT CI1.8 l/m/m2 LVOT Tm341 unupUB00 bpm LVOT SV 46.3 ml Signed 06/19/2017 07:11 PM Katie Christensen M.D. Procedure Note Interface, Radiology Results In - 06/19/2017 7:11 PM IT BUSINESS PROCESS ARCHITECT Echocardiography Report [address] [place] [address] Pat.Name: EDILBERTO PA Pat.ID: [id number] .Date: 06/19/2017 Refer.MD: GHANSHYAM HILL MD Exam Time: 8:03:00 AM Study Type:Routine Echo Height: 64in Weight: 135lb BSA: 1.66 m2 Age: 8 1945,71Y Sex: FEMALE BP: 132/60 HR: 67 bpm Sonogrphr: GARRY Reynoso Pat. Stat.:Inpatient Room: [facility] Study Status:Final Echo Event ID:[id number] Order ID: [id number] Reason for Study:Eval. pulmonary HTN Procedures:2D Echo, Colorflow Doppler, Intravenous Definity Contrast Race: C SUMMARY: Normal 2D and Doppler examination. Insufficient TR jet to estimate PA systolic pressure. FINDINGS: LV: LV size is normal. LV EF is normal. Overall wall motion is normal. Estimated EF is 65-69% RV: RV size is normal. RV systolic function is normal. RV wall motion is normal. LA: LA size is normal. RA: RA size is normal. AO: Aortic root diameter is normal. JENIFFER: No pericardial effusion. AV: No structural AV abnormalities noted. MV: No structural MV abnormalities noted. A trace of mitral regurgitation. PV: No structural PV abnormalities noted. A trace of pulmonic regurgitation. TV: No structural TV abnormalities noted. A trace of tricuspid regurgitation Reynolds: LV relaxation is reduced, appropriate for age. LV filling pressure is normal. Other: Insufficient TR jet to estimate PA systolic pressure. MEASUREMENTS: 2D Parasternal [place] LVOT 1.6 cm LA Ds 2.7 cm LVIDd 4.3 cm Index 2.6 cm/m Ao Rtd 2.7 cm Index 1.6 cm/m LVIDs 2.1 cm LV Mass 92.9 g (87-129) LV%fs 52 % LVM Index 56 g/m2 IVSd 0.7 cm RWT 0.3 LVPWd 0.7 cm LA Sng Plane LA Area 14.6 cm2 (8.8-23.4) LA Vol 36.7 ml Index 22.1 ml/m LA LngAx 4.8 cm RA Sng Plane RA Area 13.2 cm2 (8.3-19.5) RA Vol 29.8 ml Index 18 ml/m RA LngAx 4.9 cm DOPPLER LVOT Stroke Vol LVOT 1.6 cm LVOT CO 3.1 l/min LVOT TVI 23 cm LVOT CI 1.8 l/m/m2 LVOT Tm 341 msec HR 66 bpm LVOT SV 46.3 ml Signed 06/19/2017 07:11 PM Katie Christensen M.D. 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 Perfusion imaging in multiple projections was performed after intravenous administration of 5 mCi of Tc-99m labeled MAA. FINDINGS: Ventilation and perfusion are moderately heterogeneous bilaterally in overall matched patterns. No suspicious segmental defects are seen. Gas washout is prompt. IMPRESSION: Low probability of acute pulmonary embolism. 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 Perfusion imaging in multiple projections was performed after intravenous administration of 5 mCi of Tc-99m labeled MAA. FINDINGS: Ventilation and perfusion are moderately heterogeneous bilaterally in overall matched patterns. No suspicious segmental defects are seen. Gas washout is prompt. IMPRESSION: Low probability of acute pulmonary embolism. [facility] Performing Organization Address City/State/Zipcode Phone Number [facility] [address] [place] [address] * CT Angiogram Pe Chest (06/17/2017 10:20 PM IT BUSINESS PROCESS ARCHITECT) Narrative Performed At CT ANGIOGRAM PE CHEST [facility] CLINICAL INDICATION: Chest Pain, SOB TECHNIQUE:CT angiographic images of the chest were obtained during intravenous administration of iodinated contrast.Computerized, reformatted images and 3-D MIP images were obtained and archived (per CT pulmonary embolism protocol). CT scans are performed using radiation dose reduction techniques (iterative reconstruction and/or automated exposure control). Technical factors are evaluated and adjusted to ensure appropriate moderation of exposure. Automated dose management technology is applied to adjust radiation exposure while achieving a diagnostic quality image. COMPARISON:02/01/[address] FINDINGS: Pulmonary arteries: Diagnostic quality of study is adequate for the evaluation of pulmonary embolism. There are no acute pulmonary emboli. The previously described bilateral pulmonary emboli have resolved. In some areas, there is a thickening of the pulmonary arterial wall which probably represents the sequela of thromboembolic disease. Aorta:No significant abnormality. Lungs and large airways: Dependent atelectasis. Pleura:No pleural effusion, pleural thickening, or pneumothorax. Heart and pericardium:Heart size is normal. No pericardial effusion. Mediastinum and westley:No mass or hematoma. Lymph nodes:No pathological adenopathy in the westley, axilla or mediastinum. Chest wall:Unremarkable. Bones:No acute bony abnormality. Upper abdomen: Limited images of the upper abdomen with operative changes related to cholecystectomy. Scattered colonic diverticula without acute inflammatory change. IMPRESSION: Interval resolution of the previously described acute pulmonary emboli. There are findings which may represents the sequela of chronic thromboembolic disease. No parenchymal consolidations. [facility]-[id number] Procedure Note Interface, Radiology Results Incoming - 06/17/2017 10:41 PM IT BUSINESS PROCESS ARCHITECT CT ANGIOGRAM PE CHEST CLINICAL INDICATION: Chest Pain, SOB TECHNIQUE: CT angiographic images of the chest were obtained during intravenous administration of iodinated contrast. Computerized, reformatted images and 3-D MIP images were obtained and archived (per CT pulmonary embolism protocol). CT scans are performed using radiation dose reduction techniques (iterative reconstruction and/or automated exposure control). Technical factors are evaluated and adjusted to ensure appropriate moderation of exposure. Automated dose management technology is applied to adjust radiation exposure while achieving a diagnostic quality image. COMPARISON: 02/01/[address] FINDINGS: Pulmonary arteries: Diagnostic quality of study is adequate for the evaluation of pulmonary embolism. There are no acute pulmonary emboli. The previously described bilateral pulmonary emboli have resolved. In some areas, there is a thickening of the pulmonary arterial wall which probably represents the sequela of thromboembolic disease. Aorta: No significant abnormality. Lungs and large airways: Dependent atelectasis. Pleura: No pleural effusion, pleural thickening, or pneumothorax. Heart and pericardium: Heart size is normal. No pericardial effusion. Mediastinum and westley: No mass or hematoma. Lymph nodes: No pathological adenopathy in the westley, axilla or mediastinum. Chest wall: Unremarkable. Bones: No acute bony abnormality. Upper abdomen: Limited images of the upper abdomen with operative changes related to cholecystectomy. Scattered colonic diverticula without acute inflammatory change. IMPRESSION: Interval resolution of the previously described acute pulmonary emboli. There are findings which may represents the sequela of chronic thromboembolic disease. No parenchymal consolidations. [facility]-[id number] Performing Organization Address City/State/Zipcode Phone Number [facility] [address] [place] [address] * ECG ED Preliminary Interpretation - NOT AN ORDER (06/17/2017 9:04 PM IT BUSINESS PROCESS ARCHITECT) Narrative Performed At Kelby Madsen DO 06/18/20174:17 PM ECG ED Preliminary Interpretation - Not an Order Performed by: PATRICIA DALTON Authorized by: KELBY MADSEN ECG reviewed by ED Physician in the absence of a clinical services professional: yes Interpretation: Interpretation: abnormal Rate: ECG rate:97 bpm ECG rate assessment: normal Rhythm: Rhythm: sinus rhythm Ectopy: Ectopy: none QRS: QRS axis:Left QRS intervals:Normal Conduction: Conduction: abnormal Abnormal conduction: 1st degree ST segments: ST segments:Non-specific T waves: T waves: normal * Blood culture, aerobic & anaerobic (06/17/2017 8:14 PM IT BUSINESS PROCESS ARCHITECT) Only the most recent of 2 results within the time period is included. Blood culture isolate No growth after 5 days of [facility] DEPARTMENT OF incubation. PATHOLOGY AND Comment: GENOMIC MEDICINE Specimen Information Specimen Source: Blood Specimen Site: Arm Right Specimen Blood Performing Organization Address City/[facility] Phone Number [facility] DEPARTMENT OF [address] [place] [address] PATHOLOGY AND GENOMIC MEDICINE * Gram stain (06/17/2017 8:14 PM IT BUSINESS PROCESS ARCHITECT) Gram stain result No WBC's [facility] DEPARTMENT OF Occasional Gram positive rods PATHOLOGY AND Comment: GENOMIC MEDICINE Specimen Information Specimen Source: Urine Specimen Site: Clean catch Specimen Urine Performing Organization Address [facility] Phone Number [facility] DEPARTMENT OF [address] [place], [place] [id number] PATHOLOGY AND GENOMIC MEDICINE * Respiratory pathogen panel (06/17/2017 7:47 PM IT BUSINESS PROCESS ARCHITECT) Respiratory pathogen Negative for all pathogens [facility] DEPARTMENT OF panel tested: PATHOLOGY AND Negative for Adenovirus GENOMIC MEDICINE Negative for Coronavirus HKU1 Negative for Coronavirus NL63 Negative for Coronavirus 229E Negative for Coronavirus OC43 Negative for Human Metapneumovirus Negative for Rhinovirus/Enterovirus Negative for Influenza A Negative for Influenza A/H1 Negative for Influenza A/H3 Negative for Influenza A/H1-2009 Negative for Influenza B Negative for Parainfluenza Virus 1 Negative for Parainfluenza Virus 2 Negative for Parainfluenza Virus 3 Negative for Parainfluenza Virus 4 Negative for Respiratory Syncytial Virus Negative for Bordetella pertussis Negative for Chlamydophila pneumoniae Negative for Mycoplasma pneumoniae This real-time PCR assay detects the presence of nucleic acids (RNA or DNA) for the respiratory pathogens listed. A result of "Not-detected" does not exclude the possibility of the presence of one or more pathogens at concentrations less than the detectable limits of the assay. Comment: Specimen Information Specimen Source: Nares Specimen Site: Right Specimen Nares - Right Performing Organization Address [facility] Phone Number [facility] DEPARTMENT OF [address] [place] [address] PATHOLOGY AND GENOMIC MEDICINE * Influenza antigen (06/17/2017 7:47 PM IT BUSINESS PROCESS ARCHITECT) Influenza antigen Negative for Influenza A/B [facility] DEPARTMENT OF antigen. PATHOLOGY AND Comment: GENOMIC MEDICINE Specimen Information Specimen Source: Nares Specimen Site: Right Specimen Nares - Right Performing Organization Address [facility]ome Phone Number [facility] [place] [address] PATHOLOGY AND GENOMIC MEDICINE * B natriuretic peptide (06/17/2017 7:47 PM IT BUSINESS PROCESS ARCHITECT) BNP 24 0 - 100 pg/mL [facility] DEPARTMENT OF PATHOLOGY AND GENOMIC MEDICINE Specimen Blood Performing Organization Address [facility]ome Phone Number [facility] DEPARTMENT OF [address] [place] [address] PATHOLOGY AND GENOMIC MEDICINE * XR Chest 1 Vw Portable (06/17/2017 7:32 PM IT BUSINESS PROCESS ARCHITECT) Narrative Performed At EXAMINATION:XR CHEST 1 VW PORTABLE RADIANT CLINICAL HISTORY:Chest Pain, SHORTNESS OF BREATH IMPRESSION: Normal chest. Single frontal view was obtained. Heart and mediastinum are within normal limits. Lungs are clear. Regional skeleton is intact. [facility]-[id number] Procedure Note Interface, Radiology Results Incoming - 06/17/2017 7:39 PM IT BUSINESS PROCESS ARCHITECT EXAMINATION: XR CHEST 1 VW PORTABLE CLINICAL HISTORY: Chest Pain, SHORTNESS OF BREATH IMPRESSION: Normal chest. Single frontal view was obtained. Heart and mediastinum are within normal limits. Lungs are clear. Regional skeleton is intact. [facility]-[id number] Performing Organization Address [facility] Centercode Phone Number [address] [address] after 06/06/2017 Insurance Payer Benefit Subscriber ID Type Phone Address Plan / Group MEDICARE MEDICARE xxxxxxxxxx Medicare [place], [place] PART A AND B Advance Directives Patient has advance care planning documents, and code status on file. For more i nformation, please contact: Pino Santizo [address] [place] [address] Date Inactivated Comments Code Status Date Activated 02/02/2017 7:44 PM Full Code 02/01/2017 4:27 AM Code Status decision reached by: Patient
--- OUTSIDE RECORDS SUMMARY | 2018-06-07 07:15 | XMS REPORT ---
Author [facility] Address Unknown Phone Unavailable Care Team Providers Care Email Marketing Assistant Name Role Phone Unavailable Unavailable Problems This patient has no known problems. Allergies, Adverse Reactions, Alerts This patient has no known allergies or adverse reactions. Medications This patient has no known medications. Results Test Description Test Time Test Comments Text Results Atomic Results Result Comments MRI BRAIN AND IACS WO/W CLINICAL INDICATION: H90.5 Unspecified sensorineural hearing lossMODALITY: Avanto 1.5 Eleni 18 channel MRITECHNIQUE: High resolution imaging of the internal auditory canal region is obtained before and after contrast administration in the coronal and axial planes, 14 cc gadolinium. Diffusion imaging and pre and post contrast brain imaging are performed. High resolution 1 mm 3-D F SPGR axial images are obtained through the skull base.IMPRESSION:1. Normal evaluation of the internal auditory canals and skull base .2. No acute intracranial abnormalities are seen.FINDINGS:COMPARISON: noneThe internal auditory canals are normal bilaterally. VII and VIII nerve complexes are normal. There is no evidence of vestibular cochlear schwannoma or neuroma. No pathologic enhancement is seen in the IACs or within the skull base. Basal cisterns are normal. The adjacent medulla, ana, midbrain and cerebellum are normal. Jugular bulbs and carotid canals are normal at the skull base.There is mild diffuse age appropriate atrophy with prominence of the ventricular system, basilar cisterns, sulci and gyri. Mild periventricular increased signal as well as changes within the deep white matter of the bilateral cerebral hemispheres related to the patient s age and/or small vessel disease.Intracranially, diffusion imaging is normal. There are no infarcts or ischemic changes. There are no demyelinating lesions. There are no intracranial hemorrhages, mass lesions or hydrocephalus. Corpus callosum and craniocervical junction are normal. No evidence of Chiari malformation. The pineal region and central skull base are normal. Sella and parasellar structures are normal.Normal flow voids are seen in carotid and vertebrobasilar arteries. Dural venous sinuses are patent.Mastoid air cells and visualized paranasal sinuses are clear.Following contrast administration there is no evidence of pathologic enhancement in visualized skull base structures, brain or meninges.
[2018-06-07 10:00] VITALS: BP 135/71
== END | disposition home or self-care (01) ==
LOC: OR 07:12
PROVIDERS: ATTEND Internal Medicine Gastroenterology
DX: K29.50 Unspecified chronic gastritis without bleeding (principal); K20.9 Esophagitis, unspecified; K44.9 Diaphragmatic hernia without obstruction or gangrene; I10 Essential (primary) hypertension; K21.9 Gastro-esophageal reflux disease without esophagitis; E78.5 Hyperlipidemia, unspecified; F41.9 Anxiety disorder, unspecified; Z88.0 Allergy status to penicillin; Z88.8 Allergy status to other drugs, medicaments and biological substances; Z01.810 Encounter for preprocedural cardiovascular examination; Z01.812 Encounter for preprocedural laboratory examination; Z79.02 Long term (current) use of antithrombotics/antiplatelets; Z86.718 Personal history of other venous thrombosis and embolism
CPT/HCPCS: 36415; 43239; 85025; 93005; J2704

== ENCOUNTER → 2022-03-31 | Day surgery (SDC) | payer MEDICARE ==
[2022-03-23 13:26] LABS: BASOPHILS # (AUTO) 0.1 (0.0-0.1); BASOPHILS % 1.5 % (0.0-1.0); EOSINOPHILS # (AUTO) 0.1 (0.0-0.4); EOSINOPHILS % 2.3 % (0.0-6.0); HEMATOCRIT 39.7 % (34.2-44.1); MEAN CORPUSCULAR HEMOGLOBIN 26.2 pg (28-32); MEAN CORPUSCULAR HGB CONC 30.2 g/dL (31-35); MEAN CORPUSCULAR VOLUME 86.7 fL (81-99); MONOCYTES # (AUTO) 0.5 (0.2-0.8); MONOCYTES % 7.9 % (4.4-11.3); NEUTROPHILS # (AUTO) 3.4 (2.1-6.9); NEUTROPHILS % 55.1 % (38.7-80.0); PLATELET COUNT 293 x10e3/uL (140-360); RED BLOOD COUNT 4.58 x10e6/uL (3.6-5.1); RED CELL DISTRIBUTION WIDTH 14.3 % (11.7-14.4)
[~2022-03-31] MED LIST changes: +PEPCID20 MG PO; +PROPOFOL IV EMULSION 10 MG/ML 20 ML VIAL ONE; -PROPOFOL IV EMULSION 10 MG/ML 50 ML VIAL ONE
[2022-03-31 08:45] VITALS: BP 162/80
== END | disposition home or self-care (01) ==
LOC: OR 07:36
PROVIDERS: ATTEND Internal Medicine Gastroenterology
DX: R13.10 Dysphagia, unspecified (principal); K29.50 Unspecified chronic gastritis without bleeding; B96.81 Helicobacter pylori [H. pylori] as the cause of diseases classified elsewhere; K44.9 Diaphragmatic hernia without obstruction or gangrene; K21.9 Gastro-esophageal reflux disease without esophagitis; Z88.0 Allergy status to penicillin; Z88.8 Allergy status to other drugs, medicaments and biological substances; Z79.02 Long term (current) use of antithrombotics/antiplatelets; Z79.899 Other long term (current) drug therapy
CPT/HCPCS: 36415; 43233; 43239; 85025; 88305; 88342; 93005; J2704; 88304; 88312